=== PATIENT | female | born 1960 | race Caucasian/White ===

== ENCOUNTER → 2016-09-21 | Outpatient (CLI) | payer BC, OTHER | LOC: BHSO 15:47 | DX: F31.73 Bipolar disorder, in partial remission, most recent episode manic (principal) ==

== ENCOUNTER → 2016-09-21 | Outpatient (CLI) | payer BC | LOC: BHSO 15:40 | DX: F31.73 Bipolar disorder, in partial remission, most recent episode manic (principal) ==

== ENCOUNTER → 2016-11-10 | Outpatient (CLI) | payer BC, OTHER | LOC: BHSO 16:00 | DX: F31.73 Bipolar disorder, in partial remission, most recent episode manic (principal) ==

== ENCOUNTER → 2017-01-02 | Outpatient (CLI) | payer BC, OTHER | LOC: BHSO 13:29 | DX: F31.73 Bipolar disorder, in partial remission, most recent episode manic (principal) ==

== ENCOUNTER → 2017-03-08 | Outpatient (CLI) | payer BC, OTHER | LOC: BHSO 14:20 | DX: F31.73 Bipolar disorder, in partial remission, most recent episode manic (principal) ==

== ENCOUNTER → 2017-06-08 | Outpatient (CLI) | payer BC, OTHER | LOC: BHSO 14:43 | DX: F31.73 Bipolar disorder, in partial remission, most recent episode manic (principal) | CPT/HCPCS: G0463 ==

== ENCOUNTER → 2017-09-07 | Outpatient (CLI) | payer BC, OTHER | LOC: BHSO 14:48 | DX: F31.81 Bipolar II disorder (principal) | CPT/HCPCS: G0463 ==

== ENCOUNTER → 2017-11-20 | Outpatient (CLI) | payer BC, OTHER | LOC: BHSO 14:23 | DX: F31.81 Bipolar II disorder (principal) | CPT/HCPCS: G0463 ==

== ENCOUNTER → 2018-02-20 | Outpatient (CLI) | payer OTHER | LOC: BHSO 14:27 | DX: F31.81 Bipolar II disorder (principal) | CPT/HCPCS: G0463 ==

== ENCOUNTER → 2018-09-06 | Outpatient (CLI) | payer OTHER | LOC: BHSO 14:06 | DX: F31.81 Bipolar II disorder (principal) | CPT/HCPCS: G0463 ==

== ENCOUNTER → 2019-03-07 | Outpatient (CLI) | payer OTHER | LOC: BHSO 14:06 | DX: F31.81 Bipolar II disorder (principal) | CPT/HCPCS: G0463 ==

== ENCOUNTER → 2020-03-15 | Outpatient (CLI) | payer OTHER | LOC: BHSO 14:09 | DX: F31.81 Bipolar II disorder (principal) | CPT/HCPCS: G0463 ==